=== PATIENT | female | born 1975 | race Caucasian/White ===

== ENCOUNTER 2022-08-14 07:54 | Outpatient (RCR) | payer BC, SELFPAY | END 2023-04-25 23:59 | disposition home or self-care (01) | PROVIDERS: PCP Family Medicine; Visit Provider Family Medicine | DX: M77.12 Lateral epicondylitis, left elbow (principal); Z51.89 Encounter for other specified aftercare | CPT/HCPCS: 97140; 97165; 97535 ==

== ENCOUNTER 2024-09-18 07:36 | Outpatient (CLI) | payer BC, SELFPAY ==
--- NOTE | 2024-09-18 09:13 | W.ANESCHARGE ---
Anesthesia Charges Start Date/Time Anesthesia Start Date: 09/18/24 Anesthesia Start Time: 08:44 Stop Date/Time Anesthesia Stop Date: 09/18/24 Anesthesia Stop Time: 09:11
--- NOTE | 2024-09-18 09:35 | W.ANESCHARGE ---
Anesthesia Charges Start Date/Time Anesthesia Start Date: 09/18/24 Anesthesia Start Time: 08:44 Stop Date/Time Anesthesia Stop Date: 09/18/24 Anesthesia Stop Time: 09:11
== END 2024-09-18 07:37 | disposition home or self-care (01) ==
LOC: OP CLINIC 07:39
PROVIDERS: PCP Family Medicine; Visit Provider Internal Medicine Gastroenterology
DX: Z12.11 Encounter for screening for malignant neoplasm of colon (principal); D12.2 Benign neoplasm of ascending colon
CPT/HCPCS: 00811; 45380; 45381; 88305; J2704